=== PATIENT | male | born 1970 | race Caucasian/White ===

== ENCOUNTER 2017-06-14 17:43 | Inpatient (IN) | payer BC ==
[2017-06-14 18:50] LABS: Hemoglobin 15.8 gm/dL (13.5-18.0); Mean Corpuscular Hemoglobin 31.6 pg (27-31); Mean Corpuscular Hgb Conc 35.1 g/dl (32-36); Mean Platelet Volume 10.1 fl (6.0-9.5); Neutrophil # 4.5 K/mm3 (1.3-6.0); Neutrophil % 73.9 % (42-75.0); Platelet Count 203 K/mm3 (150-450); Red Cell Distribution Width 13.4 % (11.5-14.0)
[2017-06-14 19:05] LABS: ALT 84 U/L (19-67); AST 31 U/L (0-48); Albumin * 4.4 gm/dl (3.4-5.0); Alkaline Phosphatase * 97 U/L (50-170); Anion Gap 16.8 mmol/L (6.8-13.8); BUN/Creatinine Ratio 18.8 (9.0-21.6); Bilirubin, Total 0.9 mg/dL (0.0-1.1); Blood Urea Nitrogen 26 mg/dL (6-23); Ca. Corrected For Albumin 8.5 mg/dL (8.4-10.2); Calcium * 9.1 mg/dL (7.9-10.9); Chloride 101 mmol/L (97-106); Glucose * 140 mg/dL (70-110); Lipase 213 U/L (73-393); Potassium 3.8 mmol/L (3.4-4.6); Sodium 139 mmol/L (132-142); Total Protein 8.3 gm/dL (6.2-8.2)
[2017-06-14] MEDS ORDERED: NORMAL SALINE 1,000 ML IV ONE (19:17)
--- NOTE | 2017-06-14 20:14 | ERNOTE ---
<Morris Davies - Last Filed: 06/14/17 20:09> Headache ER HPI - Narrative Date of Service: 06/14/17 - General Presenting Symptoms: headache Time Seen by Provider: 06/14/17 18:15 Source: patient, family Exam Limitations: no limitations - Immun/Allergies/Home Medications Immunizations: IMMUNIZATION HX Immunizations Up to Date Yes Allergies/Adverse Reactions: Allergies No Known Allergies Allergy (Verified 06/15/17 11:59) Home Medications: HOME MEDICATIONS Allopurinol [Zyloprim] 300 mg PO DAILY 02/15/13 [Last Taken 01/22/14] Omeprazole [Prilosec Generic] 20 mg PO DAILY 02/15/13 [Last Taken 01/22/14] Levothyroxine Sodium [Tirosint] 112 mcg PO DAILY 01/23/14 [Last Taken 01/22/14] Diclofenac Sodium [Voltaren] 75 mg PO BID 09/04/14 [Last Taken Unknown] Apixaban [Eliquis] 5 mg PO BID 06/14/17 [Last Taken Unknown] Cholecalciferol [Vitamin D] 1,000 unit MC DAILY 06/14/17 [Last Taken Unknown] Sotalol HCl [Sorine] 80 mg PO BID 06/14/17 [Last Taken Unknown] Spironolactone [Aldactone] 25 mg PO DAILY 06/14/17 [Last Taken Unknown] Zolpidem Tartrate [Ambien] 10 mg PO HS PRN 06/14/17 [Last Taken Unknown] - History of Present Illness Narrative: Patient presents to the ED for headache. He relates PEREZ since last week. He had gone to the chiropractor lat week. Was sen the next day by his doctor and had medications changes for his diuretics. Subsequently had fevers and shaking chills over the weekend. Saw PCP yesterday for PEREZ and was started on ABx ( Cefdinir). Still With PEREZ on top of head, worse with walking and lying flat. Photophobia also noted. No focal N/T/W. No cough. No rash. no Cp or SOB. Timing of Headache: gradual, intermittent Context Headache: Present: new onset. Absent: CO exposure, meningitis exposure Quality: Present: pressure Severity-Currently: Present: moderate Headache frequency: Present: no recent headache Modifying Factors - (Improves): Reports: rest Modifying Factors - (Worsens): Reports: movement Associated Symptoms: Reports: fever/chills, nausea. Denies: weakness, vision changes, loss of consciousness Prior Treament: Reports: recently seen Review of Systems - Review of Systems Constitutional: Present: fever EYE: Absent: vision changes ENT: Absent: sore throat Respiratory: Absent: shortness of breath Cardiology: Absent: chest pain Gastrointestinal/Abdominal: Present: nausea Genitourinary: Absent: dysuria Musculoskeletal: Absent: back pain Skin: Absent: rash All Other Systems: All systems neg except as marked - Patient's Past Medical History Patient History - Medical: Hypothyroidism Patient History - Cardiac/Respiratory: Atrial Fibrillation, Hypertension, Hyperlipidemia Patient History - Cancer: No Hx of Cancer Patient History - Surgical Procedures: Orthopedic - Social History Smoking Status: Never smoker Have you smoked in the past 12 months: No - Immunizations Immunizations Up to Date: Yes Physical Exam - Physical Exam General Appearance: Present: alert, no apparent distress Head Exam: Present: normal inspection, no evidence of injury Eye Exam: Normal inspection: bilateral, PERRL: bilateral, EOMI: bilateral Ears, Nose, Throat: Present: normal ENT inspection Neck: Present: normal inspection, supple Respiratory: Present: no respiratory distress, normal breath sounds, no accessory muscle use, lungs clear Cardiovascular/Chest: Present: regular rate, rhythm Gastrointestinal/Abdominal: Present: normal bowel sounds, nontender, soft Back Exam: Present: normal range of motion Extremity Exam: Present: normal inspection Neurological Exam: Present: alert, normal mood/affect, no motor/sensory deficits , it security consultant II-XII nml as tested. Absent: motor weakness Skin Exam: Present: normal color, warm/dry. Absent: skin rash ED Progress - Results and Orders Patient's Lab Results:: I have reviewed the patient's lab results. - Vital Signs Patient's Vital Signs:: I have reviewed the patient's vital signs. Vital Signs: Vital Signs 06/14/17 06/14/17 17:50 19:37 Temperature 36.8 C Pulse Rate 65 63 Respiratory 12 18 Rate Blood Pressure 142/94 126/100 O2 Sat by Pulse 96 97 Oximetry - Progress/Reassessment Chief Complaint: Headache Progress Note-Subjective: 06/14/17 20:12 IV ABx given, Blood cultures obtained. IV acyclovir given. Patient checked out to Dr Wells at shift change pending CT and return of labs and futher work- up. - Transfer of Care Physician Sign Out: Morris Davies Receiving Physician: Dc Wells Pending Results: CT/MRI results, Labs Expected Disposition: Admit Departure Clinical Impression: Headache, Intractable headache, probable viral menengitis - Departure Disposition: [facility] Condition: Stable <Dc Wells - Last Filed: 06/16/17 06:48> Headache ER HPI - Immun/Allergies/Home Medications Immunizations: IMMUNIZATION HX Immunizations Up to Date Yes - Family History Father Family History - Cardiac/Respiratory: Coronary Heart Disease Mother Family History - Medical: No pertinent hx ED Progress - Results and Orders Patient's Lab Results:: I have reviewed the patient's lab results. Results and Orders: Laboratory Tests 06/14/17 06/14/17 06/14/17 18:38 18:38 18:38 WBC 6.0 Hgb 15.8 Hct 45.0 Plt Count 203 ESR 20 H Sodium 139 Potassium 3.8 Chloride 101 Carbon Dioxide 25.0 Anion Gap 16.8 H BUN 26 H Creatinine 1.38 Est GFR (Non-Af Amer) 58 L BUN/Creatinine Ratio 18.8 Random Glucose 140 H Lactic Acid, Venous Calcium 9.1 Total Bilirubin 0.9 AST 31 ALT 84 H Alkaline Phosphatase 97 C-Reactive Prot, Quant Less than 0.2 Total Protein 8.3 H Albumin 4.4 Lipase 213 Procalcitonin 06/14/17 06/14/17 18:38 18:38 WBC Hgb Hct Plt Count ESR Sodium Potassium Chloride Carbon Dioxide Anion Gap BUN Creatinine Est GFR (Non-Af Amer) BUN/Creatinine Ratio Random Glucose Lactic Acid, Venous 3.0 H* Calcium Total Bilirubin AST ALT Alkaline Phosphatase C-Reactive Prot, Quant Total Protein Albumin Lipase Procalcitonin Less than 0.05 L - Vital Signs Patient's Vital Signs:: I have reviewed the patient's vital signs. Vital Signs: Vital Signs 06/14/17 06/14/17 17:50 19:37 Temperature 36.8 C Pulse Rate 65 63 Respiratory 12 18 Rate Blood Pressure 142/94 126/100 O2 Sat by Pulse 96 97 Oximetry - CT/Ultrasound CT/Ultrasound Narrative: There is no acute intracranial hemorrhage, midline shift or mass effect detected. No hydrocephalus. Cisterns are unremarkable. Calvarium is intact. Paranasal sinuses are clear. Mastoid air cells are well pneumatized. Impression: No acute intracranial process detected. Electronically signed by Delroy Juares M.D..
[2017-06-14] MEDS ORDERED: ACYCLOVIR SODIUM 1,000 MG in DEXTROSE 5 % IN WATER 250 ML IV SCH ×2 (20:15)
[2017-06-14] MEDS ORDERED: ACETAMINOPHEN 500 MG TABLET PO ONE (21:08)
[2017-06-14] MEDS ORDERED: NALBUPHINE HCL 20 MG/ML AMPUL IV ONE (22:10)
[2017-06-14] MEDS ORDERED: NALBUPHINE HCL 20 MG/ML AMPUL ONE (22:12)
[2017-06-14] MEDS ORDERED: PROMETHAZINE HCL 25 MG/ML AMPUL IM ONE (22:19)
[2017-06-14] MEDS ORDERED: PROMETHAZINE HCL 25 MG/ML AMPUL ONE (22:19)
--- NOTE | 2017-06-15 00:14 | HP ---
Chief Complaint - Chief Complaint Date of Service: 06/15/17 Time of Service: 00:06 Chief Complaint: "Headache, blurry vision on RT eye, intermittent RT ear loss, Dry heaving,". Source of HPI- Pt; reliable, ER provider report. History of Present Illness: Mr. Benito is a 46-yr-old WM pt of Dr. Wesley Lamas with a PMH of: A-fib, Mixon's Esophagus, Kidney Stones, GERD, Hiatal Hernia, HTN,Hypothyroidism, Gout, Insomnia, DEENA. Pt states that on Friday 06/08 last week, he developed a headache after seeing his chiropractor. On , he stayed in bed most of the day and he developed some chills and he felt hot. His headaches continued on and was accompanied by symptoms involving: slight hearing loss on RT ear, Blurry vision on RT eye, dry heaving and pulsating headache. He states that the headache was worsened by standing and lying down relieved the symptoms. He took diclofenac with helped provide relief for his headache about 1 -2 hour after taking the medication. He did not feel any better on Tuesday. On Tuesday, he believes he may have had a fever as a woke up drenched in sweat and he also had chills. He reports that the headache usually begins with pain on the " top back of the neck, goes to the base of his skull and then spreads throughout his head." He reports photophobia. He saw his PCP Wednesday 06/13 with complaints of fever and dry heaving and feeling like he was going to "pass out. " He was believed to have sinusitis and Pneumonia and was started on Cefdinir. He took the medication but on Thursday 06/14 , he woke up around 1 pm feeling nauseated and still had the headache. He called his PCP's office and he was advised to go to the ED. Off-note pt states that he had URI symptoms about 2 weeks ago accompanied by runny nose,nasal congestion and watery eyes. He treated himself with OTC medications and he thought he felt better, but then started developing the headache. During evaluation at the ED, most of the lab- work was unremarkable except for an elevated ESR of 20 and lactic acid of 3.0. A head CT was obtained but it did not have any acute findings. The ERP was planning to do spinal tapping, however pt is on eliquis and the procedure was held. He was presumed to have Bacterial or Viral Menengitis and received treatment with Empiric antibiotics-Rocephin & Acyclovir. He will require to be admitted under observation for pain control and further evaluation. - Patient's Past Medical History Patient History - Medical: GERD, Hypothyroidism, Kidney stone, Other - Barretts Esophagus, Hiatal Hernia, Gout, Patient History - Cardiac/Respiratory: Atrial Fibrillation, Hypertension, Hyperlipidemia, CPAP/BiPAP Home Use, Sleep Apnea Patient History - Cancer: No Hx of Cancer Patient History - Surgical Procedures: Orthopedic Patient History - Other: None - Family History Father Family History - Cardiac/Respiratory: Coronary Heart Disease Mother Family History - Medical: No pertinent hx - Social History Living Situations: home Psych History: No pertinent hx Smoking Status: Never smoker Have you smoked in the past 12 months: No - Immunizations Immunizations Up to Date: Yes Review Of Systems (GEN) - Review of Systems Generalized/Overall Review: Present: Chills, Fever, Malaise, Diaphoresis. Absent: Weakness EENTM: Present: Blurred Vision - RT eye., Nose Congestion - 2 weeks ago. Absent : Double Vision Respiratory: Absent: Cough, Shortness of Breath, Orthopnea Cardiac: Present: Palpitations. Absent: Chest Pain, Edema, Syncope Abdominal: Present: Nausea. Absent: Vomiting, Abdominal Pain, Diarrhea, Melena Genitourinary: Absent: Burning, Itching, Urgency, Frequency Neurological: Present: Headache. Absent: Anxiety, Depressed, Emotional Problems , Numbness, Parasthesia, Seizure, Weakness Skin: Absent: Dryness, Lesions, Rash Endocrine: Absent: Intolerance to Cold, Intolerance to Heat, Increased Hunger, Increased Thirst Allergies/Adverse Reactions: Allergies Allergy/AdvReac Type Severity Reaction Status Date / Time No Known Allergies Allergy Verified 06/14/17 17:54 Home Medications: HOME MEDICATIONS Allopurinol [Zyloprim] 300 mg PO DAILY 02/15/13 [Last Taken 01/22/14] Omeprazole [Prilosec Generic] 20 mg PO DAILY 02/15/13 [Last Taken 01/22/14] Levothyroxine Sodium [Tirosint] 112 mcg PO DAILY 01/23/14 [Last Taken 01/22/14] Diclofenac Sodium [Voltaren] 75 mg PO BID 10/15/14 [Last Taken Unknown] Apixaban [Eliquis] 5 mg PO BID 06/14/17 [Last Taken Unknown] Cholecalciferol [Vitamin D] 1,000 unit MC DAILY 06/14/17 [Last Taken Unknown] Sotalol HCl [Sorine] 80 mg PO BID 06/14/17 [Last Taken Unknown] Spironolactone [Aldactone] 25 mg PO DAILY 06/14/17 [Last Taken Unknown] Zolpidem Tartrate [Ambien] 10 mg PO HS PRN 06/14/17 [Last Taken Unknown] Exam - Exam Vital Signs: Vital Signs - Last Taken Temp 36.4 C L 06/14/17 23:10 Pulse 63 06/14/17 23:45 Resp 18 06/14/17 23:45 BP 128/74 06/14/17 23:10 Pulse Ox 98 06/14/17 23:45 Constitutional: Present: Alert, Oriented x3, Cooperative, Mild distress ENT Exam: Present: hearing grossly normal. Absent: nasal congestion, nasal drainage, pharyngeal erythema Eye Exam: bilateral eye: normal inspection, PERRL Neck: Present: full range of motion, supple, normal inspection Back Exam: Present: normal inspection, no CVA tenderness Breasts: Present: Exam deferred Respiratory: Present: normal breath sounds, no accessory muscle use Cardiovascular/Chest: Present: regular rate, rhythm, no chest tenderness, no edema, no murmur Abdomen: Present: Normal bowel sounds, soft, nontender /Rectal: Present: Exam deferred Extremity: Present: normal range of motion, normal inspection, no pedal edema Skin Exam: Present: warm/dry, no cyanosis Lymphatic: Present: no adenopathy Neurologic: Present: no motor/sensory deficits, alert, oriented x 3, depressed affect, other - No nuchal rigidity.. Absent: abnormal gait, aphasia Appearance: Present: appropriate appearance, appropriate insight Eye contact: Present: cooperative, good eye contact, normal speech Thoughts: Present: normal thought pattern, no apparent hallucination Diagnostic Studies: Laboratory Results WBC 6.0 K/mm3 (4.0-10.5) 06/14/17 18:38 RBC 5.00 M/mm3 (4.7-6.0) 06/14/17 18:38 Hgb 15.8 gm/dL (13.5-18.0) 06/14/17 18:38 Hct 45.0 % (42.0-52.0) 06/14/17 18:38 MCV 90.0 fl (78-100) 06/14/17 18:38 MCH 31.6 pg (27-31) H 06/14/17 18:38 MCHC 35.1 g/dl (32-36) 06/14/17 18:38 RDW 13.4 % (11.5-14.0) 06/14/17 18:38 Plt Count 203 K/mm3 (150-450) 06/14/17 18:38 MPV 10.1 fl (6.0-9.5) H 06/14/17 18:38 Immature Gran % (Auto) 1.00 % (0.001-0.429) H 06/14/17 18:38 Immature Gran # (Auto) 0.06 K/mm3 (0.000-0.0310) H 06/14/17 18:38 Neutrophils % 73.9 % (42-75.0) 06/14/17 18:38 Lymphocytes % 16.6 % (20-51) L 06/14/17 18:38 Monocytes % 4.8 % (0.0-9) 06/14/17 18:38 Eosinophils % 2.7 % (0.0-3.0) 06/14/17 18:38 Basophils % 1.0 % (0.0-1.0) 06/14/17 18:38 Nucleated RBC % 0.0 k/mm3 (0-1) 06/14/17 18:38 Neutrophils # 4.5 K/mm3 (1.3-6.0) 06/14/17 18:38 Lymphocytes # 1.0 k/mm3 (1.5-3.5) L 06/14/17 18:38 Monocytes # 0.3 k/mm3 (0.0-1.0) 06/14/17 18: Eosinophils # 0.2 k/mm3 (0.0-0.7) 06/14/17 18:38 Absolute Basophils 0.1 k/mm3 (0.0-0.1) 06/14/17 18:38 ESR 20 mm/hr (0-10) H 06/14/17 18:38 Sodium 139 mmol/L (132-142) 06/14/17 18:38 Plasma Sodium 140 mmol/L (130-142) 06/14/17 18:38 Potassium 3.8 mmol/L (3.4-4.6) 06/14/17 18:38 Chloride 101 mmol/L (97-106) 06/14/17 18:38 Carbon Dioxide 25.0 mmol/L (24-32.6) 06/14/17 18:38 Anion Gap 16.8 mmol/L (6.8-13.8) H 06/14/17 18:38 BUN 26 mg/dL (6-23) H 06/14/17 18:38 Creatinine 1.38 mg/dL (0.4-1.4) 06/14/17 18:38 Est GFR (Non-Af Amer) 58 mL/min (60-130) L 06/14/17 18:38 BUN/Creatinine Ratio 18.8 (9.0-21.6) 06/14/17 18:38 Random Glucose 140 mg/dL (70-110) H 06/14/17 18:38 Lactic Acid, Venous 1.9 mmol/L (0.4-1.9) 06/14/17 21:49 Calcium 9.1 mg/dL (7.9-10.9) 06/14/17 18:38 Calcium Adj for Albumin 8.5 mg/dL (8.4-10.2) 06/14/17 18:38 Total Bilirubin 0.9 mg/dL (0.0-1.1) 06/14/17 18:38 AST 31 U/L (0-48) 06/14/17 18:38 ALT 84 U/L (19-67) H 06/14/17 18:38 Alkaline Phosphatase 97 U/L (50-170) 06/14/17 18:38 C-Reactive Prot, Quant Less than 0.2 mg/dL (0.0-0.9) 06/14/17 18:38 Total Protein 8.3 gm/dL (6.2-8.2) H 06/14/17 18:38 Albumin 4.4 gm/dl (3.4-5.0) 06/14/17 18:38 Lipase 213 U/L (73-393) 06/14/17 18:38 Procalcitonin Less than 0.05 ng/mL (0.05-0.50) L 06/14/17 18:38 Assessment/Plan - Assessment/Plan (1) Meningitis Assessment: Pt reported headaches, fever, photophobia, and nausea. His symptoms were preceded by a recent URI symptoms and therefore suspect Viral Menengitis vs Bacterial menegtitis. Even though his WBC was normal with no left shift on the CBC, he had an elevated ESR level of 20. Viral or Bacterial Meningitis cannot be distinguished by clinical findings and therefore the foremost need is to rule out bacterial menengitis -with CSF evaluation. The L.P could not be done in the ER as pt is on Eliquis anticoagulant for his A-fib. Since there was delay in performing the procedure, Empiric antibiotic therapy may be considered/ necessary even if viral meningitis is suspected. Pt will be covered with Cetriaxone and Acyclovir until a viral or bacterial cause is identified by the CSF analysis. Will check PT/INR level in am and determine if the LP procedure can be done. Should the cause be determined to be viral, there is usually no specific antiviral therapy for most viruses and treatment is supportive unless HSV is detected, which would be treated with Acyclovir for 14-21 days. Problem: Acute (2) Intractable headache Assessment: Provide supportive care with Analgesics and antiemetics. Problem: Acute (3) A-fib Assessment: Hold Eliquis due to anticipated invasive procedure. Place on remote telemetry monitoring. Problem: Chronic (4) HTN (hypertension) Assessment: Stable- On sotalol, Spironolactone Problem: Chronic Qualifiers: Hypertension type: essential hypertension Qualified Code(s): I10 - Essential (primary) hypertension (5) GERD (gastroesophageal reflux disease) Assessment: Stable- On Omeprazole. Problem: Chronic (6) Obstructive sleep apnea Assessment: Stable- Continue with home CPAP use. Problem: Chronic (7) Gout Assessment: Stable -Continue Allopurinol. Problem: Chronic
[2017-06-15] MEDS ORDERED: ZOLPIDEM TARTRATE 10 MG TABLET PO PRN (00:51)
[2017-06-15] MEDS: NORMAL SALINE 1,000 ML IV PRN ×3 (01:41→21:35)
[2017-06-15] MEDS: NALBUPHINE HCL 10 MG/ML AMPUL IV PRN ×4 (04:17→21:31)
[2017-06-15 06:17] LABS: Prothrombin Time (Patient) 11.3 Seconds (9.4-11.4)
[2017-06-15 06:25] LABS: INR 1.09 INR (0.90-1.10)
[2017-06-15] MEDS: LEVOTHYROXINE SODIUM 112 MCG TABLET PO SCH (07:38)
[2017-06-15] MEDS: PANTOPRAZOLE SODIUM 20 MG TABLET.DR PO SCH (07:38)
[2017-06-15] MEDS: METOCLOPRAMIDE HCL 5 MG/ML VIAL IV PRN ×3 (07:46→21:31)
[2017-06-15] MEDS: ACYCLOVIR SODIUM 700 MG in NORMAL SALINE 100 ML IV SCH ×2 (08:53→16:31)
[2017-06-15] MEDS: SPIRONOLACTONE 25 MG TABLET PO SCH (08:59)
[2017-06-15] MEDS: ALLOPURINOL 300 MG TABLET PO SCH (08:59)
[2017-06-15] MEDS: SOTALOL HCL 80 MG TABLET PO SCH ×2 (08:59→20:07)
[2017-06-15] MEDS: CHOLECALCIFEROL 1,000 UNIT CAPSULE MC SCH (09:00)
[2017-06-15] MEDS ORDERED: OMEPRAZOLE 20 MG CAPSULE.SA PO SCH (09:00)
[2017-06-15] MEDS ORDERED: LORazepam 2 MG/ML DISP.SYRIN IV PRN (15:18)
[2017-06-16] MEDS: ACYCLOVIR SODIUM 700 MG in NORMAL SALINE 100 ML IV SCH ×4 (01:15→23:48)
--- NOTE | 2017-06-16 06:24 | PN ---
Subjective - Date and Time Seen Date: 06/16/17 Time: 06:12 Subjective Narrative: Mr. Benito examined this am. Reports that headaches are improving but gets worse with sitting or standing and feels nauseated once he starts walking. He required prn analgesics and antiemetics once during the night. MRI of the brain completed yesterday- Menengitis could not be ruled in/out, but sinusitis was noted. Awaiting neurology consult. No other issues according to nursing. Objective - Vitals Vitals: Last Vital Signs Temp 36.8 C 06/16/17 03:00 Pulse 53 L 06/16/17 03:00 Resp 18 06/16/17 03:00 BP 140/76 06/16/17 03:00 Pulse Ox 97 06/16/17 03:00 - Exam Constitutional: Present: Alert, Oriented x3, Cooperative, No distress ENT Exam: Present: normal ENT inspection, hearing grossly normal Neck: Present: full range of motion, supple, normal inspection Respiratory: Present: lungs clear, no accessory muscle use Cardiovascular/Chest: Present: normal peripheral pulses, regular rate, rhythm, no chest tenderness, no edema Abdomen: Present: Normal bowel sounds, soft, nontender /Rectal: Present: Exam deferred Extremity: Present: normal range of motion, non-tender, normal inspection Skin Exam: Present: warm/dry, no cyanosis Lymphatic: Present: no adenopathy Neurologic: Present: no motor/sensory deficits, alert, normal mood/affect, oriented x 3. Absent: abnormal gait, dizzy/light-headedness Appearance: Present: appropriate appearance, appropriate insight Eye contact: Present: cooperative, good eye contact, normal speech Thoughts: Present: normal thought pattern, no apparent hallucination Assessment/Plan - Problems/Diagnosis (1) Meningitis Problem: Acute Narrative: Pt reported headaches, fever, photophobia, and nausea. His symptoms were preceded by a recent URI symptoms and therefore suspect Viral Menengitis vs Bacterial menegtitis. Even though his WBC was normal with no left shift on the CBC, he had an elevated ESR level of 20. Viral or Bacterial Meningitis cannot be distinguished by clinical findings and therefore the foremost need is to rule out bacterial menengitis -with CSF evaluation. The L.P could not be done in the ER as pt is on Eliquis anticoagulant for his A-fib. Since there was delay in performing the procedure, Empiric antibiotic therapy may be considered/ necessary even if viral meningitis is suspected. Pt will be covered with Cetriaxone and Acyclovir until a viral or bacterial cause is identified by the CSF analysis. Should the cause be determined to be viral, there is usually no specific antiviral therapy for most viruses and treatment is supportive unless HSV is detected, which would be treated with Acyclovir for 14-21 days. 06/16/17- MRI of the brain completed but it did not rule in/rule out menengitis. Still planning to perform L.P either today or tomorrow or depending on Neurology recommendations. (2) Intractable headache Problem: Acute Narrative: Provide supportive care with Analgesics and antiemetics. (3) A-fib Problem: Chronic Narrative: Hold Eliquis due to anticipated invasive procedure. Place on remote telemetry monitoring. SCDs for DVT prophylaxis (4) HTN (hypertension) Problem: Chronic Qualifiers: Hypertension type: essential hypertension Qualified Code(s): I10 - Essential (primary) hypertension Narrative: Stable- On sotalol, Spironolactone (5) GERD (gastroesophageal reflux disease) Problem: Chronic (6) Obstructive sleep apnea Problem: Chronic Narrative: Stable- Continue with home CPAP use. (7) Gout Problem: Chronic Narrative: Stable -Continue Allopurinol.
[2017-06-16] MEDS: NORMAL SALINE 1,000 ML IV PRN ×2 (06:51→17:07)
[2017-06-16] MEDS: LEVOTHYROXINE SODIUM 112 MCG TABLET PO SCH (06:52)
[2017-06-16] MEDS: PANTOPRAZOLE SODIUM 20 MG TABLET.DR PO SCH (06:52)
[2017-06-16] MEDS: SOTALOL HCL 80 MG TABLET PO SCH ×2 (09:09→20:04)
[2017-06-16] MEDS: CHOLECALCIFEROL 1,000 UNIT CAPSULE MC SCH (09:09)
[2017-06-16] MEDS: ALLOPURINOL 300 MG TABLET PO SCH (09:09)
[2017-06-16] MEDS: SPIRONOLACTONE 25 MG TABLET PO SCH (09:09)
[2017-06-16] MEDS: NALBUPHINE HCL 10 MG/ML AMPUL IV PRN (17:13)
[2017-06-17] MEDS: NORMAL SALINE 1,000 ML IV PRN (03:29)
[2017-06-17 05:59] LABS: Hematocrit 39.3 % (42.0-52.0); Hemoglobin 13.8 gm/dL (13.5-18.0); Mean Cell Volume 89.3 fl (78-100); Mean Corpuscular Hemoglobin 31.4 pg (27-31); Mean Corpuscular Hgb Conc 35.1 g/dl (32-36); Mean Platelet Volume 9.7 fl (6.0-9.5); Neutrophil # 4.2 K/mm3 (1.3-6.0); Neutrophil % 68.1 % (42-75.0); Platelet Count 144 K/mm3 (150-450); Red Cell Distribution Width 13.2 % (11.5-14.0); White Blood Count 6.1 K/mm3 (4.0-10.5)
[2017-06-17 06:05] LABS: Anion Gap 11.2 mmol/L (6.8-13.8); BUN/Creatinine Ratio 11.2 (9.0-21.6); Calcium * 8.1 mg/dL (7.9-10.9); Carbon Dioxide 27.5 mmol/L (24-32.6); Estimated Creat Clear 89.2; Potassium 3.7 mmol/L (3.4-4.6)
--- NOTE | 2017-06-17 06:44 | PN ---
Progess Note - Interim Narrative: 06/17/17 06:40 states his sx overall are getting better, though the PEREZ have always gotten worse by the evening, they're not as bad as they've been. He would like some percocet at time of discharge to be able to control the PEREZ if possible as the nubain here seems to help, but the vicoden he had at home for his back didn't help. Alert CTA PANKAJ RRR no murmur CN 2-12 grossly intact, no dysmetria. No meningismus A/P: PEREZ - viral meningitis or possible lymes. LP today with CSF studies being sent. If he continues to do well today will plan on discharge this pm resuming his home cefdinir, start doxycycline 100mg po bid and percocet for pain. will also continue the acyclovir for now.
[2017-06-17] MEDS: LEVOTHYROXINE SODIUM 112 MCG TABLET PO SCH (07:50)
[2017-06-17] MEDS: PANTOPRAZOLE SODIUM 20 MG TABLET.DR PO SCH (07:50)
[2017-06-17 08:00] VITALS: BP 146/90
--- NOTE | 2017-06-17 09:34 | DS ---
(1) Intractable headache Problem: Acute Qualifiers: Headache type: unspecified Headache chronicity pattern: unspecified pattern Qualified Code(s): R51 - Headache (2) Meningitis Problem: Acute (3) HTN (hypertension) Problem: Chronic Qualifiers: Hypertension type: essential hypertension Qualified Code(s): I10 - Essential (primary) hypertension (4) Obstructive sleep apnea Problem: Chronic Description of Stay: pt. admitted and placed on acyclovir and high dose rocephin. during the course of his stay his PEREZ did improve. LP could not be done due to pt. being on blood thinner and since he was improving it was discussed outpatient treatment/ testing options at this time and patient wishes to do this as he is anxious to go see his son who is in the and could deploy at anytime. Procedures Performed: none Discharge Disposition: Home self care Disposition: Home self-care Condition: Stable Discharge Activity: Activity as tolerated Discharge Diet: General/regular food Referrals: Wesley Lamas MD [Primary Care Provider] - (upon return to the area) Prescriptions (Any new or edited meds): Acyclovir 800 mg PO 5XD #50 tablet Cefdinir 300 mg PO BID #1 capsule Doxycycline Hyclate [Morgidox] 100 mg PO BID #28 capsule Complete Home Medications List: Complete Home Medication List: Allopurinol [Zyloprim] 300 mg PO DAILY 02/15/13 Omeprazole [Prilosec] 20 mg PO DAILY 02/15/13 Levothyroxine Sodium [Tirosint] 112 mcg PO DAILY 01/23/14 Diclofenac Sodium [Voltaren] 75 mg PO BID 09/04/14 Apixaban [Eliquis] 5 mg PO BID 06/14/17 Cholecalciferol [Vitamin D] 1,000 unit MC DAILY 06/14/17 Sotalol HCl [Sorine] 80 mg PO BID 06/14/17 Spironolactone [Aldactone] 25 mg PO DAILY 06/14/17 Zolpidem Tartrate [Ambien] 10 mg PO HS PRN 06/14/17 Acyclovir 800 mg PO 5XD #50 tablet 06/17/17 Cefdinir 300 mg PO BID #1 capsule 06/17/17 Doxycycline Hyclate [Morgidox] 100 mg PO BID #28 capsule 06/17/17
[2017-06-17] MEDS: ACYCLOVIR SODIUM 700 MG in NORMAL SALINE 100 ML IV SCH (09:59)
[2017-06-17] MEDS: CHOLECALCIFEROL 1,000 UNIT CAPSULE MC SCH (10:00)
[2017-06-17] MEDS: SPIRONOLACTONE 25 MG TABLET PO SCH (10:00)
[2017-06-17] MEDS: ALLOPURINOL 300 MG TABLET PO SCH (10:00)
[2017-06-17] MEDS: SOTALOL HCL 80 MG TABLET PO SCH (10:00)
== END 2017-06-17 11:33 | disposition home or self-care (01) | DRG 103 ==
LOC: ER 17:43 → MS 22:39 → OBSVTOIN 06-15 08:12
PROVIDERS: ADMIT Nurse Practitioner; ATTEND Family Medicine
DX: R51 Headache (principal); A87.9 Viral meningitis, unspecified; A69.21 Meningitis due to Lyme disease; J01.90 Acute sinusitis, unspecified; I48.2 Chronic atrial fibrillation; I10 Essential (primary) hypertension; E03.9 Hypothyroidism, unspecified; K21.9 Gastro-esophageal reflux disease without esophagitis; Z79.01 Long term (current) use of anticoagulants
CPT/HCPCS: 36415; 70450; 70553; 80048; 80053; 83605; 83690; 84145; 85025; 85610; 85652; 86140; 87040; 94660; 96365; 96366; 96372; 96375; 99285; G0378

== ENCOUNTER 2017-07-22 12:15 | Day surgery (SDC) | payer BC ==
--- NOTE | 2017-07-22 13:06 | OR ---
Anesthesia Pre Procedure Eval Pre Procedure Evaluation: Last Vital Signs Temp 36.0 C L 07/22/17 12:28 Pulse 62 07/22/17 12:28 Resp 16 07/22/17 12:28 BP 127/84 07/22/17 12:28 Pulse Ox 97 07/22/17 12:28 PRE PROCEDURE EVALUATION:: DATE: 07/22/2017 TIME: 1300 INDICATIONS: Cerebrospinal fluid analysis for patient complaints of headache and fatigue PAST MEDICAL HISTORY: No previous lumbar puncture for CSF analysis EXAM: Lungs clear and equal. Heart rate regular. Procedure risks and benefits were explained to and accepted by the patient. ASSESSMENT OF MEDICAL STATUS: No contraindication to lumbar puncture. Patient has been off eliquis since July 17 PLANNED PROCEDURE : Lumbar puncture for CSF analysis. Home Medications: HOME MEDICATIONS Allopurinol [Zyloprim] 300 mg PO DAILY 02/15/13 [Last Taken 01/22/14] Omeprazole [Prilosec] 20 mg PO DAILY 02/15/13 [Last Taken 01/22/14] Levothyroxine Sodium [Tirosint] 112 mcg PO DAILY 01/23/14 [Last Taken 01/22/14] Apixaban [Eliquis] 5 mg PO BID 06/14/17 [Last Taken 07/17/17] Cholecalciferol [Vitamin D] 1,000 unit MC DAILY 06/14/17 [Last Taken Unknown] Sotalol HCl [Sorine] 80 mg PO BID 06/14/17 [Last Taken Unknown] Spironolactone [Aldactone] 25 mg PO DAILY 06/14/17 [Last Taken Unknown] Zolpidem Tartrate [Ambien] 10 mg PO HS PRN 06/14/17 [Last Taken Unknown]
[2017-07-22] MEDS ORDERED: LIDOCAINE HCL 50 ML VIAL IJ ONE ×2 (13:10)
--- NOTE | 2017-07-22 13:37 | OR ---
Anesthesia Procedure Note - Anesthesia Procedure Note Narrative: Vital Signs - Last Taken Temp 36.0 C L 07/22/17 12:28 Pulse 64 07/22/17 13:06 Resp 18 07/22/17 13:06 BP 128/78 07/22/17 13:06 Pulse Ox 97 07/22/17 13:06 O2 Oxygen Delivery Method Room Air 07/22/17 13:35 ANESTHESIA PROCEDURE NOTE Date of procedure: 07/22/2017. Time of procedure: 1315. Performed by: Oscar Hi CRNA Grain Distributor: Cira Ely RN . Preprocedure diagnosis: Headaches and fatigue. Post procedure diagnosis: Same. Procedure: Lumbar puncture Indications: CSF analysis. Findings: Patient brought to operating room #3 and placed in a sitting position. His back was prepped with DuraPrep. Dura was punctured at L3 4 with a 22-gauge Villagran spinal needle. 1% Xylocaine was infiltrated at the L3 4 interspace before needle stick. A total of 8 mL of clear CSF was obtained. 2 mL each of 4 vials. Spinal needle was removed intact and a Band-Aid applied to the puncture site. EBL: Minimal. Fluids: N/A. Specimen: N/A. Post procedure condition: The patient tolerated the procedure well. No complications were noted. Thank you for this consultation Oscar Hi CRNA
[2017-07-22 14:07] VITALS: BP 125/78
== END 2017-07-22 12:16 | disposition home or self-care (01) ==
LOC: AMB 12:15
PROVIDERS: ATTEND Family Medicine
PROC: 009U3ZX Drainage of Spinal Canal, Percutaneous Approach, Diagnostic (ICD-10-PCS; principal; 2017-07-22 13:00)
DX: R51 Headache (principal); R53.83 Other fatigue; Z68.41 Body mass index [BMI] 40.0-44.9, adult